=== PATIENT | female | born 1965 | race Caucasian/White ===

== ENCOUNTER 2019-02-02 19:03 | Emergency (ER) | payer MEDICARE, MEDICAID ==
[~2019-02-02] VITALS: Ht 157.5 cm; Wt 57.0 kg
--- NOTE | 2019-02-02 20:00 | NUR ---
PT STATES SHE WAS DRIVING TO [employer] FROM [place] WHEN SHE STARTED FEELING DIFFERENT. PT STATES SHE HAS HAD THESE EPISODES MULTIPLE TIMES OVER THE LAST YEAR. PT STATES SHE THINKS IT MAY BE FROM EXPOSURE TO SOMETHING OR BEING POISIONED. TO BATHROOM TO GIVE URINE SAMPLE AFTER LAB DRAW
[2019-02-02 20:23] LABS: ALANINE AMINOTRANSFERASE 20 U/L (12-78); ALBUMIN 3.8 g/dL (3.4-5.0); ANION GAP 8 mmol/L (5-15); CALCIUM 9.1 mg/dL (8.5-10.1); CHLORIDE 107 mmol/L (98-107); CREATININE 0.87 mg/dL (0.55-1.02)
[2019-02-02 20:25] LABS: ALKALINE PHOSPHATASE 90 U/L (45-117); BILIRUBIN,TOTAL 0.4 mg/dL (0.2-1.0); TOTAL PROTEIN 7.5 g/dL (6.4-8.2)
[2019-02-02 20:30] LABS: MEAN CORPUSCULAR HEMOGLOBIN 32.6 pg (27.0-34.8); MEAN CORPUSCULAR HGB CONC 34.2 g/dL (32.4-35.8); MEAN CORPUSCULAR VOLUME 95.6 fL (80-100); MEAN PLATELET VOLUME 8.2 fL (7.4-10.4); PLATELET COUNT 339 x10^3/uL (130-400); RED BLOOD COUNT 4.54 x10^6/uL (3.82-5.3); RED CELL DISTRIBUTION WIDTH 13.9 % (9.6-15.2)
--- NOTE | 2019-02-02 20:37 | NUR ---
ASSUMED CARE OF PATIENT.
--- NOTE | 2019-02-02 20:37 | NUR ---
REPORT TO ISIDORO MERRITT
[2019-02-02 21:10] LABS: MICROSCOPIC NOT IND
[2019-02-02 21:15] LABS: BASOPHILS # (AUTO) 0.04 x10^3/uL (0-0.1); BASOPHILS % (AUTO) 0 % (0-1); EOSINOPHILS # (AUTO) 0.02 x10^3/uL (0-0.4); EOSINOPHILS % (AUTO) 0 % (1-7); LYMPHOCYTES # (AUTO) 1.98 x10^3/uL (1-3.4); LYMPHOCYTES % (AUTO) 24 % (22-44); MD SCAN; MONOCYTES # (AUTO) 0.42 x10^3/uL (0.2-0.8); MONOCYTES % (AUTO) 5 % (2-9); NEUTROPHILS # (AUTO) 5.85 x10^3/uL (1.8-6.8); NEUTROPHILS % (AUTO) 70 % (42-75)
[2019-02-02 21:18] LABS: CULTURE INDICATED? NO
[2019-02-02 21:45] VITALS: BP 139/89
== END 2019-02-02 21:47 | disposition home or self-care (01) ==
LOC: ED 21:10
DX: R42 Dizziness and giddiness (principal); Z72.9 Problem related to lifestyle, unspecified; F10.10 Alcohol abuse, uncomplicated; F41.1 Generalized anxiety disorder; F32.9 Major depressive disorder, single episode, unspecified; F17.210 Nicotine dependence, cigarettes, uncomplicated; F17.200 Nicotine dependence, unspecified, uncomplicated
CPT/HCPCS: 36415; 80053; 81003; 81025; 85025; 93005; 99284